=== PATIENT | male | born 2000 | race Caucasian/White ===

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

== ENCOUNTER 2022-09-22 08:37 | Outpatient (CLI) | payer OTHER ==
[~2022-09-22 08:37] MED LIST: ABILIFY10 MG PO; ABILIFY5 MG PO; ADDERALL 10 MG10 MG PO; KETO10TA2 PO; WELLBUTRIN XL300 MG PO
== END 2022-09-22 08:38 | disposition home or self-care (01) ==
LOC: LAB 08:37
PROVIDERS: ATTEND Psychiatry & Neurology Child & Adolescent Psychiatry
DX: D64.9 Anemia, unspecified (principal); N39.0 Urinary tract infection, site not specified; E03.9 Hypothyroidism, unspecified; E78.2 Mixed hyperlipidemia; E55.9 Vitamin D deficiency, unspecified; R73.09 Other abnormal glucose

== ENCOUNTER 2024-11-08 02:38 | Emergency (ER) | payer OTHER ==
[~2024-11-08] VITALS: Ht 160 cm; Wt 137.9 kg
[2024-11-08] MEDS ORDERED: ZOLOFT100 MG PO (02:56)
[2024-11-08] MEDS ORDERED: CLONAZEPAM1 MG PO (02:56)
[2024-11-08] MEDS ORDERED: VISTARIL50 MG/ML IM (02:57)
[2024-11-08 02:58] VITALS: BP 90/60; O2SAT 95
[2024-11-08 09:42] LABS: HEMATOCRIT 42.7 % (39.0-48.0); HEMOGLOBIN 14.1 g/dL (13-16.00); MEAN CELL VOLUME 81.3 fL (80.0-100.00); MEAN CORPUSCULAR HEMOGLOBIN 26.8 pg (27.00-32.0); MEAN CORPUSCULAR HGB CONC 32.9 g/dl (32.0-36.0); PLATELET COUNT 297 K/uL (150-450); RED BLOOD COUNT 5.26 M/uL (4.00-6.00); RED CELL DISTRIBUTION WIDTH 15.3 % (11.5-14.5)
[2024-11-08 10:34] LABS: ALBUMIN 4.2 gm/dL (3.4-5.0); BILIRUBIN TOTAL 0.3 mg/dL (0.3-1.2); CALCIUM 9.6 mg/dL (8.5-10.1); CREATININE SERUM 0.9 mg/dL (0.70-1.30); GFR 104.57; GLOBULINA 3.3 G/DL (2.4-3.5); POTASSIUM 4.5 mEq/L (3.5-5.1); TOTAL PROTEIN 7.5 gm/dL (6.4-8.2)
[2024-11-08] MEDS ORDERED: KETOROLAC TROMETHAMINE 30 MG VIAL ONE (12:13)
[2024-11-08] MEDS ORDERED: KETOROLAC TROMETHAMINE 30 MG VIAL IV ONE (12:15)
[2024-11-08] MEDS ORDERED: CIPROFLOXACIN IN 5 % DEXTROSE 400 MG/200 ML PIGGYBAG IV ONE ×2 (13:15→13:19)
[2024-11-08] MEDS ORDERED: METRONIDAZOLE/SODIUM CHLORIDE 500 MG/100 ML PIGGYBACK IV ONE ×3 (13:15→13:23)
[2024-11-08] MEDS ORDERED: CIPRO500 MG PO (17:35)
[2024-11-08] MEDS ORDERED: FLAGYL375 MG PO (17:35)
[2024-11-08] MEDS ORDERED: PEPCID AC20 MG PO (17:35)
== END 2024-11-08 18:50 | disposition home or self-care (01) ==
LOC: ER 02:39
PROVIDERS: Preventive Medicine Public Health & General Preventive Medicine
DX: K63.89 Other specified diseases of intestine (principal)